=== PATIENT | female | born 1995 | race Caucasian/White ===

== ENCOUNTER 2023-05-30 08:58 | Emergency (ER) | payer OTHER ==
[~2023-05-30] VITALS: Ht 167.6 cm; Wt 54.4 kg
[2023-05-30] MEDS ORDERED: FOLIC ACID1 MG (09:10)
== END 2023-05-30 13:31 | disposition home or self-care (01) ==
LOC: ER 08:58
DX: R55 Syncope and collapse (principal); R42 Dizziness and giddiness; Z3A.13 13 weeks gestation of pregnancy

== ENCOUNTER 2023-07-14 10:41 | Outpatient (CLI) | payer OTHER ==
[~2023-07-14 10:41] MED LIST: FOLIC ACID1 MG
== END 2023-07-14 11:41 | disposition home or self-care (01) ==
LOC: PRENATAL 10:41
PROVIDERS: ATTEND Obstetrics & Gynecology Maternal & Fetal Medicine
DX: O35.3XX0 Maternal care for (suspected) damage to fetus from viral disease in mother, not applicable or unspecified (principal); O44.00 Complete placenta previa NOS or without hemorrhage, unspecified trimester; Z3A.19 19 weeks gestation of pregnancy